=== PATIENT | male | born 1970 | race Caucasian/White ===

== ENCOUNTER 2021-02-24 17:32 | Emergency (ER) | payer MEDICAID, SELFPAY ==
[2021-02-24 19:13] VITALS: BP 139/73; PULSE 73; RESP 16; TEMP 36.8; O2SAT 98; BMI 31.0
[2021-02-24 20:48] LABS: COVID-19 Test Negative (Negative)
--- NOTE | 2021-02-24 21:50 | ED_ITS ---
HPI - URI/Sore Throat General Chief Complaint: Upper Respiratory Symptoms Stated Complaint: body aches and sore throat Time Seen by Provider: 02/24/21 21:47 Source: patient Mode of arrival: ambulatory Limitations: no limitations History of Present Illness HPI Narrative: Patient presents with upper respiratory symptoms consistent with COVID. Is requesting COVID testing. MD elicited complaint: cough, sore throat, rhinorrhea and nasal congestion Onset (ago): day(s) Consistency: constant Severity: mild Pain scale (0-10): 3 Description of mucous: clear Able to tolerate fluids by mouth: Yes Exacerbating factors: nothing Relieving factors: nothing Associated symptoms: denies other symptoms Treatments prior to arrival: none Related Data Allergies Allergy/AdvReac Type Severity Reaction Status Date / Time No Known Allergies Allergy Verified 02/24/21 19:18 Review of Systems Review of Systems: Constitutional: No Fever, No Chills ENT/Mouth: No Ear Pain, No Hoarseness, positive sore throat Eyes: No Eye Pain, No Swelling, No Redness, No Foreign Body Cardiovascular: No Chest Pain, No SOB Respiratory: Positive Cough, No Dyspnea Gastrointestinal: No Nausea, No Vomiting, No Diarrhea, No abdominal Pain Genitourinary: No Dysuria, No Hematuria Musculoskeletal: positive muscular skeletal pain, No Myalgias, No Joint Swelling Skin: No Skin lacerations, No rash Neuro: No Weakness, No Numbness, No Paresthesias, No Loss of Consciousness, No Dizziness, No Headache Psych: No Anxiety/Panic, No Depression Heme/Lymph: no easy bruising, no Lymphadenopathy Endocrine: No Polyuria, No Polydipsia Yes all other systems are reviewed and are negative [facility] Past Medical History Attestation statement: The following information was validated with the patient. Source: old records reviewed Social History Social History Advance Directives: No Advance Directives Information Provided: No Physical Exam Vital Signs: Vital Signs: Last Vital Signs Temp 98.2 F 02/24/21 19:13 Pulse 73 02/24/21 19:13 Resp 16 02/24/21 19:13 BP 139/73 02/24/21 19:13 Pulse Ox 98 02/24/21 19:13 BMI result Body Mass Index 31.0 Appearance: Alert. Oriented X3. No acute distress. Eyes: Pupils equal, round and reactive to light. ENT: Pharynx normal. Neck: Normal inspection. Neck supple. CVS: Normal heart rate and rhythm. Pulses normal. Respiratory: No respiratory distress. Breath sounds normal. Abdomen: Soft and nontender. Skin: Skin warm and dry. Normal skin color. Normal skin turgor. Extremities: No lower extremity edema. Moves all extremities against resistance. Neuro: No motor deficit. No sensory deficit. Cranial nerves 2-12 intact. Course Course Course Narrative: 50-year-old male presents with upper respiratory symptoms, cough and sore throat. Wants to be tested for COVID. nontoxic, afebrile, vital signs are within normal limits and stable. Patient was informed of negative COVID testing. Patient verbalized understanding of and agrees to plan of care discharge home. MDM - URI/Sore Throat Differential Diagnosis Differential diagnosis: Likely upper respiratory infection, viral infection and influenza Medical Records Attestation: I reviewed the patient's medical records. Lab Data Attestation: I reviewed the patient's lab results. Labs: Lab Results 02/24/21 Range/Units 20:14 COVID-19 ([facility]) Negative (Negative) COVID-19 Clin Com See Note Discharge Plan Discharge Clinical Impression: Viral infection Upper respiratory infection Qualifiers: URI type: unspecified URI Qualified Code(s): J06.9 - Acute upper respiratory infection, unspecified Patient Disposition: Home, Self-Care Instructions: Viral Syndrome (ED) Additional Instructions: You were evaluated for upper respiratory symptoms. Your COVID test is negative. Please drink plenty of fluids. Use Tylenol and Motrin as needed for pain management. Please follow the directions on the package, write down what time you give these medications to prevent accidental overdose. Follow-up with primary care physician. Thank you for choosing this emergency department for evaluation. Please follow-up with primary care physician as needed. Return to the emergency department for any new, concerning, or worsening symptoms. Stand Alone Forms: Work/School Release Interventions: ED Discharge Assessment Last Done: 02/24/21 22:26 Discharge Date/Time: 02/24/21 22:26
== END 2021-02-24 22:26 | disposition home or self-care (01) ==
PROVIDERS: Emergency Provider Emergency Medicine
DX: J06.9 Acute upper respiratory infection, unspecified (principal); B34.9 Viral infection, unspecified; Z20.822 Contact with and (suspected) exposure to COVID-19; J02.9 Acute pharyngitis, unspecified; M79.10 Myalgia, unspecified site
CPT/HCPCS: 36415; 87635; 99283; 99284

== ENCOUNTER 2022-03-28 09:11 | Emergency (ER) | payer MEDICAID, SELFPAY ==
--- NOTE | ~2022-03-28 | XR_ITS ---
EXAMINATION: XR second finger, RIGHT CLINICAL INFORMATION: Rule out foreign body or fracture. COMPARISON: None TECHNIQUE: Three views of the right second finger. FINDINGS: There is no evidence of acute fracture or dislocation of the right second finger. No radiopaque foreign body identified. Joint spaces are maintained. XR/XR finger RT min 2V IMPRESSION: No significant abnormality of the right second finger identified.
[2022-03-28 09:22] VITALS: PULSE 79; RESP 16; TEMP 36.2; O2SAT 98
[2022-03-28] MEDS: Ibuprofen 600 MG TABLET PO (09:47)
[2022-03-28] MEDS: Diphth,Pertus(ACell),Tet Adult 0.5 ML SYRINGE IM (09:53)
[2022-03-28] MEDS: Lidocaine HCl 1 % MPF 2 ML VIAL INFILTRATI ×2 (09:57)
[2022-03-28] MEDS: cephALEXin 500 MG CAPSULE PO (10:02)
--- NOTE | 2022-03-28 10:02 | ED.WOUNDLAC ---
HPI - Wound/Laceration General Chief Complaint: Wound/Laceration Stated Complaint: nail through r index finger Time Seen by Provider: 03/28/22 09:17 History of Present Illness HPI narrative: Patient complains of nail from nail gun which he accidentally shot through his right index finger, he pulled it out at home now he complains of pain in the finger He can move all joints in the finger there is no numbness or weakness, last tetanus shot date on Related Data Previous Rx's Medication Instructions Recorded cephalexin 500 mg tablet 500 mg PO QID 5 days #20 tabs 03/28/22 ibuprofen 600 mg tablet 600 mg PO Q6H PRN pain #20 tabs 03/28/22 oxycodone 5 mg tablet 5 mg PO Q6H PRN pain #10 tabs 03/28/22 Allergies Allergy/AdvReac Type Severity Reaction Status Date / Time No Known Allergies Allergy Verified 02/24/21 19:18 [facility] Past Medical History Source: nursing notes reviewed Social History Social History Smoked in Last 30 Days: Yes Use of substances other than those prescribed or required for medical reasons: No Substance Use Type: Marijuana Advance Directives: No Advance Directives Information Provided: No Physical Exam Vital Signs: Vital Signs: Last Vital Signs Temp 97.2 F 03/28/22 09:22 Pulse 79 03/28/22 09:22 Resp 16 03/28/22 09:22 Pulse Ox 98 03/28/22 09:22 O2 Del Method 03/28/22 09:22 BMI result Body Mass Index 0.4 General appearance no distress Head normocephalic atraumatic Neck is supple Respiratory no distress Extremities the right index finger has a puncture wound on the medial aspect of the middle phalanx of the right index finger and another puncture wound on the lateral aspect, there is no laceration there is no other gross of the injury He has full range of motion and normal tendon function on extension and flexion, sensation is intact motor is intact vascular intact, normal cap refill Other extremities normal Neuro no focal motor sensory deficits Course Course Course Narrative: X-ray of right index finger did not show any foreign body or fracture and was normal The wound was washed and irrigated but patient is advised that the interior of the wound cannot be clean so tired risk for infection He is given a tetanus shot and Keflex prophylactic antibiotic For pain control a digital block was given with 4 cc of bupivacaine and 2 cc of lidocaine with good results Patient is discharged Medications Administered Discontinued Medications Generic Name Dose Route Start Last Admin Trade Name Freq PRN Reason Stop Dose Admin Bupivacaine HCl 10 ml 03/28/22 09:36 03/28/22 09:59 Bupivacaine Mpf 0.25% 10 Ml Vial INFILTRATI 03/28/22 09:37 10 ml ONCE ONE Administration Diphtheria/Tetanus/Acell Pertussis 0.5 ml 03/28/22 09:33 03/28/22 09:53 Diphth,Pertus(Acell),Tet Adult 0.5 Ml Syringe IM 03/28/22 09:34 0.5 ml .ONCE ONE Administration Ibuprofen 600 mg 03/28/22 09:35 03/28/22 09:47 Ibuprofen 600 Mg Tablet PO 03/28/22 09:36 600 mg ONCE ONE Administration Lidocaine HCl 2 ml 03/28/22 09:43 03/28/22 09:57 Lidocaine Hcl 1 % Mpf 2 Ml Vial INFILTRATI 03/28/22 09:44 2 ml ONCE ONE Administration Lidocaine HCl 2 ml 03/28/22 09:43 03/28/22 09:57 Lidocaine Hcl 1 % Mpf 2 Ml Vial INFILTRATI 03/28/22 09:44 2 ml ONCE ONE Administration Discharge Plan Discharge Clinical Impression: Puncture wound of right index finger Patient Disposition: Home, Self-Care Additional Instructions: X-ray did not show any broken bone or foreign body in the finger You got a tetanus shot As we could not clean the interior of the wound it is high risk for infection so we are giving preventive antibiotic Keflex Return any time for redness swelling pain red stripe up arm discharge from wound any sign of infection any concerns Prescriptions: New ibuprofen 600 mg tablet 600 mg PO Q6H PRN (Reason: pain) Qty: 20 0RF cephalexin 500 mg tablet 500 mg PO QID 5 Days Qty: 20 0RF oxycodone 5 mg tablet 5 mg PO Q6H PRN (Reason: pain) Qty: 10 0RF Rx Instructions: Partial Fill upon patient request.
== END 2022-03-28 10:15 | disposition home or self-care (01) ==
PROVIDERS: Emergency Provider Emergency Medicine
DX: S61.230A Puncture wound without foreign body of right index finger without damage to nail, initial encounter (principal); W29.4XXA Contact with nail gun, initial encounter; Y93.89 Activity, other specified; Y92.039 Unspecified place in apartment as the place of occurrence of the external cause; Y99.9 Unspecified external cause status
CPT/HCPCS: 64450; 73140; 90471; 90715; 99284

== ENCOUNTER 2025-01-06 19:58 | Emergency (ER) | payer OTHER, SELFPAY ==
--- NOTE | 2025-01-06 20:09 | ED.EYEPROB ---
HPI - Eye Problem General Chief complaint: Eye Problems Stated complaint: left eye irratation Time Seen by Provider: 01/06/25 20:59 Source: patient Mode of arrival: ambulatory Limitations: no limitations History of Present Illness ED Provider: Dr. Patiño HPI Narrative: 54-year-old male he was cutting up wood at work when saw that is part echo got into his left eye. Complaining of pain in his left eye. Difficult to keep his left eye open. Related Data Previous Rx's ?Medication ?Instructions ?Recorded cephalexin 500 mg capsule 500 mg PO QID 5 days #20 caps 03/28/22 cephalexin 500 mg tablet 500 mg PO QID 5 days #20 tabs 03/28/22 ibuprofen 600 mg tablet 600 mg PO Q6H PRN pain #20 tabs 03/28/22 ibuprofen 600 mg tablet 600 mg PO Q6H PRN pain #20 tabs 03/28/22 oxycodone 5 mg tablet 5 mg PO Q6H PRN pain #10 tabs 03/28/22 oxycodone 5 mg tablet 5 mg PO Q6H PRN pain #10 tabs 03/28/22 erythromycin 5 mg/gram (0.5 %) eye 1 appl ophthalmic-Left DAILY 7 01/06/25 ointment days #3.5 grams Allergies Allergy/AdvReac Type Severity Reaction Status Date / Time No Known Allergies Allergy Verified 01/06/25 20:15 Review of Systems Review of Systems: Pertinent review of systems as mentioned in HPI. All other system otherwise negative. [facility] Past Medical History [facility] Narrative: None Social History Social History Substance Use Type: Marijuana Advance Directives: No Advance Directives Information Provided: Yes Do you have a plan to hurt others: No Plan Physical Exam Exam: Exam: General: Pleasant, no distress, interacting appropriately Head: Normacephalic, atraumatic ENT: Conjunctivitis of the left eye. We will lamp stain shows a left upper corneal ulcer at the 12:00 - 2 o'clock position. It does appear to be a foreign object underneath his left upper eyelid. Neurological: Awake and alert, no facial droop noted Skin: Warm and dry Psychiatric: Appropriate mood and thoughts Vital Signs: Vital Signs: Last Vital Signs Temp 98.1 F 01/06/25 20:10 Pulse 100 01/06/25 20:10 Resp 20 01/06/25 20:10 BP 140/79 H 01/06/25 20:10 Pulse Ox 100 01/06/25 20:10 O2 Del Method Room Air 01/06/25 20:10 BMI result Body Mass Index 29.5 Course Course Course Narrative: This is a Rapid Medical Exam performed in triage by Anuja Childs PA-C. Full HPI, ROS and PE to be performed by primary ED provider. 54 yo Kiswahili speaking male presenting to the ED c/o Left eye irritation and suspected FB s/p cutting wood with saw this afternoon & wind blowing wood into eyes. +tearing. Was wearing protective glasses. Does not wear glasses or contacts. Denies visual loss or blurry vision PE: tearing, +conjunctival injection, difficult to examine Plan: visual acuity, fluorescein staining Medications Administered Discontinued Medications Generic Name Dose Route Start Last Admin Trade Name Freq PRN Reason Stop Dose Admin Fluorescein Sodium 1 strip 01/06/25 20:14 01/06/25 21:31 Fluorescein Sodium Strip EYE-LEFT 01/06/25 20:15 1 strip ONCE ONE Administration Tetracaine HCl 1 drop 01/06/25 20:14 01/06/25 21:32 Tetracaine Hcl/Pf 0.5% Oph Priya 4 Ml Drops EYE-LEFT 01/06/25 20:15 1 drop ONCE ONE Administration Medical Decision Making Medical Decision Making [facility] Narrative: 54-year-old male presented hospital today for evaluation of left eye pain after getting saw dust in his left eye. I performed a Wood's lamp exam. He does have foreign object underneath his left eyelid. This was removed and flushed with saline water. He does have a left upper corneal ulcer identified on exam. Does have signs of conjunctivitis on gross examination. Patient's left eye was numbed with proparacaine. I used a Q-tip to remove the foreign object. And I flushed the left eye multiple time. On re-examination no further signs of foreign object. I did spencer his left upper eyelid. 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 Patient will be discharged with erythromycin ointment. Follow up to eye Clinic will be provided to patient. Differential Diagnosis Differential Diagnoses: The differential diagnosis associated with the presentation includes Corneal ulcer, conjunctivitis, iritis, corneal abrasion Discharge Plan Discharge Clinical Impression: Corneal ulcer Qualifiers: Laterality: left Qualified Code(s): H16.002 - Unspecified corneal ulcer, left eye Conjunctivitis Qualifiers: Conjunctivitis type: acute Acute conjunctivitis type: unspecified Laterality: left Qualified Code(s): H10.32 - Unspecified acute conjunctivitis, left eye Patient Disposition: Home, Self-Care Instructions: Corneal Ulcer (ED), Conjunctivitis (ED) Prescriptions: New erythromycin 5 mg/gram (0.5 %) ointment 1 appl ophthalmic-Left DAILY 7 Days Qty: 3.5 0RF No Action ibuprofen 600 mg tablet 600 mg PO Q6H PRN (Reason: pain) Qty: 20 0RF cephalexin 500 mg tablet 500 mg PO QID 5 Days Qty: 20 0RF oxycodone 5 mg tablet 5 mg PO Q6H PRN (Reason: pain) Qty: 10 0RF Rx Instructions: Partial Fill upon patient request. ibuprofen 600 mg tablet 600 mg PO Q6H PRN (Reason: pain) Qty: 20 0RF cephalexin 500 mg capsule 500 mg PO QID 5 Days Qty: 20 0RF oxycodone 5 mg tablet 5 mg PO Q6H PRN (Reason: pain) Qty: 10 0RF Rx Instructions: Partial Fill upon patient request. Referrals: Juan Fernandez [Physician, Ophthalmology] Clinical Impression: Corneal ulcer Print Language: Kiswahili
[2025-01-06 20:10] VITALS: BP 140/79; PULSE 100; RESP 20; TEMP 36.7; O2SAT 100; BMI 29.5
[2025-01-06] MEDS: Fluorescein Sodium STRIP 1 STRIP EYE-LEFT (21:31)
[2025-01-06] MEDS: Tetracaine HCl/PF 0.5% Oph Sol 4 ML DROPS 1 DROP EYE-LEFT (21:32)
[2025-01-06 22:00] VITALS: BP 136/69; PULSE 96; RESP 20; TEMP 36.7; O2SAT 99
[2025-01-06 22:02] VITALS: BP 136/69; PULSE 96; RESP 20; TEMP 36.7; O2SAT 99
[2025-01-06] MEDS: Erythromycin Base 0.5% Oph Oin 1 GM TUBE 1 CM EYE-LEFT (22:07)
== END 2025-01-06 22:10 | disposition home or self-care (01) ==
PROVIDERS: Emergency Provider Student in an Organized Health Care Education/Training Program
DX: H16.002 Unspecified corneal ulcer, left eye (principal); H10.32 Unspecified acute conjunctivitis, left eye; H57.12 Ocular pain, left eye
CPT/HCPCS: 99283